=== PATIENT | male | born 1945 | race Caucasian/White ===

== ENCOUNTER 2018-06-30 19:01 | Emergency (ER) | payer MEDICARE, OTHER ==
[~2018-06-30] VITALS: Ht 177.8 cm; Wt 79.5 kg
[~2018-06-30 19:01] MED LIST: ASPI-1265 PO; ATOR20TA PO; CHOL200035 PO; CLOP75TA35 PO; LISI-222 PO; OMEP40CA37 PO
[2018-06-30] MEDS ORDERED: SULF1TAB49 PO (20:08)
[2018-06-30] MEDS ORDERED: LIDOcaine 1% w/epiNEPHrine 1:200,000 30ml vial IJ ONE (20:10)
[2018-06-30] MEDS ORDERED: LIDOcaine 1.5% w/epinephrine 1:200,000 5ml ampul IJ ONE (20:10)
[2018-06-30 20:19] VITALS: BP 107/71
--- NOTE | 2018-06-30 20:22 | NUR ---
I&D supplies at bedside. Pt with stable vs and denies any pain or any needs at this time. Awaiting RUTHANN Sanchez for I&D.
== END 2018-06-30 21:06 | disposition home or self-care (01) ==
LOC: ER 19:01
DX: L02.413 Cutaneous abscess of right upper limb (principal); I25.2 Old myocardial infarction; Z86.73 Personal history of transient ischemic attack (TIA), and cerebral infarction without residual deficits; Z98.61 Coronary angioplasty status; Z98.890 Other specified postprocedural states; Z88.5 Allergy status to narcotic agent; Z79.82 Long term (current) use of aspirin; Z79.899 Other long term (current) drug therapy; Z56.0 Unemployment, unspecified
CPT/HCPCS: 10060; 99283; J3490